=== PATIENT | male | born 2000 | race Caucasian/White ===

== ENCOUNTER 2024-08-10 18:29 | Emergency (ER) | payer MEDICAID ==
[~2024-08-10] VITALS: Ht 167.6 cm; Wt 80.0 kg
[2024-08-10 18:45] VITALS: BP 149/83; PULSE 55; RESP 16; TEMP 97.9; O2SAT 98
== END 2024-08-10 21:52 | disposition left against medical advice (07) ==
LOC: ER 18:29
DX: M79.642 Pain in left hand (principal); Z53.21 Procedure and treatment not carried out due to patient leaving prior to being seen by health care provider